=== PATIENT | female | born 1955 | race Caucasian/White ===

== ENCOUNTER 2018-05-18 05:39 | Day surgery (SDC) | payer BC ==
[~2018-05-18] VITALS: Ht 185.4 cm; Wt 90.9 kg
--- NOTE | ~2018-05-18 | OP ---
PATIENT NAME: AGNES KRUSE MEDICAL RECORD: [id number] :55 LOCATION:[facility] ADMISSION DATE: SURGEON: JASON NEGRO DPM DATE OF OPERATION: 05/18/2018 PREOPERATIVE DIAGNOSIS: Arthritis, right first MPJ. POSTOPERATIVE DIAGNOSIS: Arthritis, right first MPJ with inclusion of large osteophyte dorsal first metatarsal. PROCEDURE: Cheilectomy, right first MPJ with excision of large osteophyte. ANESTHESIA: General with local infiltrate utilizing lidocaine and Marcaine plain, 10 cc total around the first ray. HEMOSTASIS: Right ankle tourniquet at 250 mmHg. PREOPERATIVE DETAILS: The patient was taken to the OR, placed on the operating table in a supine position. This was followed by induction of general anesthesia and then with infiltration of local anesthetic. The right extremity was then prepped and draped in the usual aseptic technique, followed by exsanguination and inflation of tourniquet. A 15 blade was used to create a 4-cm linear incision over dorsal aspect of the first ray extending to the base of the proximal phalanx of the hallux. The incision was deepened down through subcutaneous tissue to the extensor longus tendon. A linear capsulotomy was made just medial to the tendon, which was longitudinal in nature. The head of the first metatarsal and the base of the proximal phalanx were then delivered. There was noted to be significant osteophytes on the dorsal aspect of the first metatarsal head. The osteophyte was freed and removed measuring approximately 1.5 cm in diameter with very rough edges. Once it was removed, inspection of the joint showed that there was some chondromalacia on the dorsal aspect of the first metatarsal head as well as the base of proximal phalanx of the hallux. A rongeur was used to remove the chondromalacia on the proximal phalanx. A sagittal saw was used to do the cheilectomy on the dorsal aspect of the head of the first metatarsal. Following the cheilectomy, the joint was inspected. There was noted to be adequate cartilaginous surface on the head of the first metatarsal on the base of the proximal phalanx. Excellent range of motion was noted. The joint was flushed copiously. A 2-0 Vicryl was then used to close the capsule, followed by closure of the subcutaneous tissue with 4-0 Rapide. The skin was then closed with 4-0 Rapide in a subcuticular technique, followed by Dermabond. Adaptic, 4 x 4, and Conform were used to dress the wound, followed by Coban. Tourniquet was deflated. POSTOPERATIVE DETAILS: The patient tolerated the procedure well and left the OR with vital signs stable and vascular status at preoperative levels. The patient was transported to recovery per anesthesia in stable condition. TRANSINT:[id number] Voice Confirmation ID: [id number] DOCUMENT ID: [id number] OPERATIVE REPORT [id number] AGNES KRUSE MCKAY DPM at 0833 CC: [id number] DICTATION DATE: 05/18/18905 HOURLY SHIFT MANAGER: 05/18/18919 [facility] 05/18/18 [id number] [place] [address]
[2018-05-18 07:04] VITALS: BP 117/66; Ht 185.4 cm; Wt 90.9 kg
== END 2018-05-18 10:40 | disposition home or self-care (01) ==
LOC: D.OPS 05:39 → D.PAN 08:00 → D.OPS 10:40
DX: M13.871 Other specified arthritis, right ankle and foot (principal); M25.774 Osteophyte, right foot; Z01.812 Encounter for preprocedural laboratory examination